=== PATIENT | male | born 1970 | race Two or more races ===

== ENCOUNTER 2024-10-17 08:07 | Emergency (ER) | payer OTHER ==
[~2024-10-17] VITALS: Ht 170.2 cm; Wt 79.4 kg
[2024-10-17] MEDS ORDERED: TOPROL XL50 M1 (08:15)
[2024-10-17] MEDS ORDERED: AVAPRO150 MG (08:15)
[2024-10-17 08:16] VITALS: BP 144/79; O2SAT 98
[2024-10-17] MEDS ORDERED: NEURONTIN300 MG (08:16)
[2024-10-17] MEDS ORDERED: CARDURA1 MG (08:16)
[2024-10-17 09:21] LABS: HEMATOCRIT 41.2 % (39.0-48.0); HEMOGLOBIN 13.7 g/dL (13-16.00); MEAN CELL VOLUME 88.9 fL (80.0-100.00); MEAN CORPUSCULAR HEMOGLOBIN 29.6 pg (27.00-32.0); MEAN CORPUSCULAR HGB CONC 33.3 g/dl (32.0-36.0); PLATELET COUNT 179 K/uL (150-450); RED BLOOD COUNT 4.64 M/uL (4.00-6.00); RED CELL DISTRIBUTION WIDTH 12.4 % (11.5-14.5)
[2024-10-17 09:42] LABS: ALBUMIN 3.9 gm/dL (3.4-5.0); BILIRUBIN TOTAL 1.25 mg/dL (0.3-1.2); CALCIUM 9.2 mg/dL (8.5-10.1); CREATININE SERUM 1.26 mg/dL (0.70-1.30); GFR 60.1; GLOBULINA 3.4 G/DL (2.4-3.5); POTASSIUM 4.92 mEq/L (3.5-5.1); TOTAL PROTEIN 7.3 gm/dL (6.4-8.2)
[2024-10-17 09:45] LABS: C-REACTIVE PROTEIN 0.33 MG/DL (0.00-0.29)
[2024-10-17] MEDS ORDERED: METHYLPREDNISOLONE ACETATE 40 MG/ML VIAL IM ONE (10:15)
== END 2024-10-17 10:59 | disposition home or self-care (01) ==
LOC: ER 08:07
PROVIDERS: General Practice
DX: M25.421 Effusion, right elbow (principal); M25.521 Pain in right elbow; I10 Essential (primary) hypertension; Z88.6 Allergy status to analgesic agent; Z88.2 Allergy status to sulfonamides